=== PATIENT | male | born 1985 | race Caucasian/White ===

== ENCOUNTER 2022-10-31 15:02 | Inpatient (IN) | payer OTHER ==
[~2022-10-31] VITALS: Ht 177.8 cm; Wt 113.4 kg
[2022-10-31] MEDS ORDERED: SODIUM CHLORIDE 0.9% 1,000 ML IV ONE (16:00)
[2022-10-31] MEDS ORDERED: KETOROLAC TROMETHAMINE 30 MG/ML VIAL IVP ONE (16:00)
[2022-10-31] MEDS ORDERED: ONDANSETRON HCL 4 MG/2 ML VIAL IVP ONE (16:00)
[2022-10-31 16:42] LABS: BASOPHILS % (AUTO) 0.6 % (0.0-2.0); EOSINOPHILS % (AUTO) 0.1 % (1.0-6.0); HEMOGLOBIN 17.9 g/dL (13.5-17.5); LYMPHOCYTES # (AUTO) 1.7 K/uL (1.0-4.8); LYMPHOCYTES % (AUTO) 9.3 % (22.0-44.0); MEAN CORPUSCULAR HEMOGLOBIN 29.2 pg (26.0-34.0); MEAN CORPUSCULAR HGB CONC 33.8 G/dL (31.0-37.0); MEAN CORPUSCULAR VOLUME 87 fL (80-100); MONOCYTES # (AUTO) 1.4 K/uL (0.1-1.0); MONOCYTES % (AUTO) 8.2 % (2.0-9.0); NEUTROPHILS # (AUTO) 14.5 K/uL (1.8-7.7); NEUTROPHILS % (AUTO) 81.8 % (40.0-70.0); PLATELET COUNT (AUTO) 319 K/uL (150-450); RED BLOOD CELL COUNT(AUTO) 6.13 MIL/uL (4.50-5.90); RED CELL DISTRIBUTION WIDTH 12.9 % (11.5-14.5)
[2022-10-31 16:45] LABS: ANION GAP 7 mmol/L (8-16); CARBON DIOXIDE 33 mmol/L (22-29); CHLORIDE 97 mmol/L (98-107); CREATININE 0.85 mg/dL (0.60-1.30); GLOMERULAR FILTR. RATE CALC > 60 mL/min (>60); GLUCOSE,RANDOM 125 mg/dL (70-110); POTASSIUM 3.7 mmol/L (3.5-5.1); SODIUM SERUM 137 mmol/L (136-145)
[2022-10-31 16:51] LABS: ALANINE AMINOTRANSFERASE 34 U/L (12-78); ALBUMIN 3.8 g/dL (3.4-5.0); ALKALINE PHOSPHATASE 79 U/L (46-116); ASPARTATE AMINOTRANSFERASE 21 U/L (15-37); BILIRUBIN,TOTAL 0.7 mg/dL (0.1-1.0); TOTAL PROTEIN, SERUM 7.9 g/dL (6.4-8.2)
[2022-10-31 17:40] LABS: AMPHET/METH SCREEN,URINE NEGATIVE (NEGATIVE); BARBITURATE SCREEN, URINE NEGATIVE (NEGATIVE); BENZODIAZEPINES SCREEN,URINE NEGATIVE (NEGATIVE); CANNABINOID SCREEN,URINE NEGATIVE (NEGATIVE); COCAINE SCREEN,URINE NEGATIVE (NEGATIVE); METHADONE SCREEN, URINE NEGATIVE (NEGATIVE); OPIATE SCREEN,URINE NEGATIVE (NEGATIVE); PHENCYCLIDINE SCREEN,URINE NEGATIVE (NEGATIVE)
[2022-10-31] MEDS ORDERED: ACETAMINOPHEN 325 MG TABLET PO PRN ×2 (18:45→19:30)
[2022-10-31] MEDS ORDERED: ONDANSETRON HCL 4 MG/2 ML VIAL IVP PRN (18:45)
[2022-10-31] MEDS ORDERED: TraZODone HCL 50 MG TABLET PO PRN (19:30)
[2022-10-31] MEDS ORDERED: CloNIDine HCL 0.1 MG TABLET PO PRN (19:30)
[2022-10-31] MEDS ORDERED: DICYCLOMINE HCL 10 MG CAPSULE PO PRN (19:30)
[2022-10-31] MEDS ORDERED: IBUPROFEN 600 MG TABLET PO PRN (19:30)
[2022-10-31] MEDS ORDERED: MAG HYDROX/AL HYDROX/SIMETH ES 30 ML SUSPENSION UDCUP PO PRN (19:30)
[2022-10-31] MEDS ORDERED: ZOLPIDEM TARTRATE 5 MG TABLET PO PRN (19:30)
[2022-10-31] MEDS ORDERED: HydrOXYzine PAMOATE 50 MG CAPSULE PO PRN (19:30)
[2022-10-31] MEDS ORDERED: BACLOFEN 10 MG TABLET PO PRN (19:30)
[2022-10-31] MEDS ORDERED: ALBUTEROL SULFATE 2.5 MG/0.5 ML NEB SOLUTION NEB PRN (19:30)
[2022-10-31] MEDS ORDERED: BISACODYL 10 MG RECTAL RECTAL SUPPOSITORY PR PRN (19:30)
[2022-10-31] MEDS ORDERED: PROMETHAZINE HCL 25 MG TABLET PO PRN (19:30)
[2022-10-31] MEDS ORDERED: IPRATROPIUM BROMIDE 0.5 MG/2.5 ML NEB SOLUTION NEB PRN (19:30)
[2022-10-31] MEDS ORDERED: MAGNESIUM HYDROXIDE SUSPENSION 30 ML UDCUP PO PRN (19:30)
[2022-10-31] MEDS ORDERED: LORazepam 1 MG TABLET PO PRN (19:30)
[2022-10-31 21:00] VITALS: BP 146/86; PULSE 72; RESP 20; TEMP 98.3; O2SAT 100
[2022-10-31] MEDS: DOCUSATE SODIUM 100 MG CAPSULE PO SCH (21:00)
[2022-10-31] MEDS: SODIUM CHLORIDE 0.45% 1,000 ML IV SCH (21:25)
[2022-10-31 21:30] VITALS: BP 146/86; PULSE 72; RESP 20; TEMP 98.3
[2022-10-31] MEDS: ONDANSETRON HCL 4 MG/2 ML VIAL IVP PRN (23:43)
[2022-11-01] MEDS: HEPARIN SODIUM,PORCINE 5,000 UNITS/ML VIAL SQ SCH ×4 (00:03→22:44)
[2022-11-01 04:25] VITALS: BP 127/77; PULSE 85; RESP 22; TEMP 99.2
[2022-11-01 08:00] VITALS: BP 108/71; PULSE 75; RESP 20; TEMP 99.3
[2022-11-01] MEDS: PANTOPRAZOLE SODIUM 40 MG/VIAL IVP SCH (09:02)
[2022-11-01] MEDS: DOCUSATE SODIUM 100 MG CAPSULE PO SCH (09:02)
[2022-11-01] MEDS: SODIUM CHLORIDE 0.45% 1,000 ML IV SCH ×2 (09:05→22:42)
[2022-11-01] MEDS: ONDANSETRON HCL 4 MG/2 ML VIAL IVP PRN (09:11)
[2022-11-01 15:00] VITALS: BP 129/68; PULSE 83; RESP 20; TEMP 99.5
[2022-11-01 15:20] VITALS: BP 115/70; PULSE 88; RESP 19; TEMP 98.5
[2022-11-01 19:47] VITALS: BP 141/64; PULSE 79; RESP 20; TEMP 98.4
[2022-11-02 04:50] VITALS: BP 120/63; PULSE 87; RESP 20; TEMP 98.5
[2022-11-02 08:02] VITALS: BP 104/69; PULSE 90; RESP 18; TEMP 99.7
[2022-11-02] MEDS: PANTOPRAZOLE SODIUM 40 MG/VIAL IVP SCH (08:17)
[2022-11-02] MEDS: HEPARIN SODIUM,PORCINE 5,000 UNITS/ML VIAL SQ SCH ×3 (08:19→23:22)
[2022-11-02] MEDS: SODIUM CHLORIDE 0.45% 1,000 ML IV SCH (11:44)
[2022-11-02 13:05] VITALS: BP_SYST 115; BP_DIAS 81; BP_DIAS 91; PULSE 108; RESP 20; TEMP 98.8; O2SAT 98
[2022-11-02] MEDS: CloNIDine HCL 0.1 MG TABLET PO PRN ×2 (13:10→20:32)
[2022-11-02] MEDS ORDERED: LORazepam 2 MG/ML VIAL IVP PRN (14:00)
[2022-11-02] MEDS ORDERED: CloNIDine 0.1 MG/24 HOUR PATCH TD SCH (14:00)
[2022-11-02] MEDS: LORazepam 2 MG/ML VIAL IVP PRN ×2 (15:32→20:32)
[2022-11-02] MEDS: LOPERAMIDE HCL 2 MG/15 ML SUSPENSION UDCUP PO PRN (15:32)
[2022-11-02 15:58] LABS: LYMPHOCYTES # (AUTO) 1.6 K/uL (1.0-4.8); NEUTROPHILS % (AUTO) 76.7 % (40.0-70.0)
[2022-11-02 16:01] LABS: BASOPHILS % (AUTO) 0.3 % (0.0-2.0); EOSINOPHILS % (AUTO) 0 % (1.0-6.0); HEMATOCRIT 50.8 % (41-53); HEMOGLOBIN 16.8 g/dL (13.5-17.5); LYMPHOCYTES % (AUTO) 13.9 % (22.0-44.0); MEAN CORPUSCULAR HEMOGLOBIN 28.7 pg (26.0-34.0); MEAN CORPUSCULAR HGB CONC 33.1 G/dL (31.0-37.0); MEAN CORPUSCULAR VOLUME 87 fL (80-100); MONOCYTES % (AUTO) 9.1 % (2.0-9.0); NEUTROPHILS # (AUTO) 8.6 K/uL (1.8-7.7); PLATELET COUNT (AUTO) 280 K/uL (150-450); RED BLOOD CELL COUNT(AUTO) 5.86 MIL/uL (4.50-5.90); RED CELL DISTRIBUTION WIDTH 12.8 % (11.5-14.5)
[2022-11-02 16:02] LABS: ANION GAP 6 mmol/L (8-16); CALCIUM, TOTAL 9.4 mg/dL (8.8-10.5); CARBON DIOXIDE 27 mmol/L (22-29); CHLORIDE 102 mmol/L (98-107); GLOMERULAR FILTR. RATE CALC > 60 mL/min (>60); GLUCOSE,RANDOM 112 mg/dL (70-110); POTASSIUM 3.7 mmol/L (3.5-5.1); SODIUM SERUM 135 mmol/L (136-145)
[2022-11-02 16:27] LABS: ALANINE AMINOTRANSFERASE 29 U/L (12-78); ALBUMIN 3.5 g/dL (3.4-5.0); ALKALINE PHOSPHATASE 71 U/L (46-116); ASPARTATE AMINOTRANSFERASE 22 U/L (15-37); BILIRUBIN,TOTAL 0.6 mg/dL (0.1-1.0); CREATINE KINASE, TOTAL ONLY 157 U/L (39-308); TOTAL PROTEIN, SERUM 7.5 g/dL (6.4-8.2)
[2022-11-02 20:21] VITALS: BP 130/84; PULSE 93; RESP 20; TEMP 99.2
[2022-11-02] MEDS: ACETAMINOPHEN 325 MG TABLET PO PRN (20:32)
[2022-11-03] MEDS: SODIUM CHLORIDE 0.45% 1,000 ML IV SCH ×2 (00:09→15:27)
[2022-11-03 00:36] VITALS: BP 128/94; PULSE 83; RESP 18; TEMP 97.6
[2022-11-03] MEDS: LORazepam 2 MG/ML VIAL IVP PRN (00:41)
[2022-11-03 07:39] VITALS: BP 121/67; PULSE 77; RESP 20; TEMP 98.2
[2022-11-03] MEDS: HEPARIN SODIUM,PORCINE 5,000 UNITS/ML VIAL SQ SCH ×3 (08:43→23:10)
[2022-11-03] MEDS: PANTOPRAZOLE SODIUM 40 MG/VIAL IVP SCH (08:43)
[2022-11-03 12:59] VITALS: BP 124/74; PULSE 82; RESP 20; TEMP 97.8
[2022-11-03 14:58] VITALS: BP 128/76; PULSE 87; RESP 20; TEMP 98.4
[2022-11-03] MEDS: LOPERAMIDE HCL 2 MG/15 ML SUSPENSION UDCUP PO PRN (16:57)
[2022-11-03 20:44] VITALS: BP 123/75; PULSE 65; RESP 20; TEMP 98.6
[2022-11-04] MEDS: SODIUM CHLORIDE 0.45% 1,000 ML IV SCH ×2 (03:42→15:10)
[2022-11-04 05:33] VITALS: BP 121/63; PULSE 67; RESP 20; TEMP 97
[2022-11-04 07:24] VITALS: BP 126/68; PULSE 72; RESP 20; TEMP 97.8
[2022-11-04] MEDS: HEPARIN SODIUM,PORCINE 5,000 UNITS/ML VIAL SQ SCH ×3 (08:37→22:58)
[2022-11-04] MEDS: PANTOPRAZOLE SODIUM 40 MG/VIAL IVP SCH (08:37)
[2022-11-04 10:43] LABS: BASOPHILS % (AUTO) 0.3 % (0.0-2.0); EOSINOPHILS % (AUTO) 0.2 % (1.0-6.0); HEMATOCRIT 51.9 % (41-53); HEMOGLOBIN 17.5 g/dL (13.5-17.5); LYMPHOCYTES # (AUTO) 2.6 K/uL (1.0-4.8); MEAN CORPUSCULAR HEMOGLOBIN 29.3 pg (26.0-34.0); MEAN CORPUSCULAR HGB CONC 33.8 G/dL (31.0-37.0); MEAN CORPUSCULAR VOLUME 87 fL (80-100); MONOCYTES # (AUTO) 0.9 K/uL (0.1-1.0); NEUTROPHILS # (AUTO) 8.2 K/uL (1.8-7.7); NEUTROPHILS % (AUTO) 69.5 % (40.0-70.0); PLATELET COUNT (AUTO) 252 K/uL (150-450); RED BLOOD CELL COUNT(AUTO) 5.99 MIL/uL (4.50-5.90); RED CELL DISTRIBUTION WIDTH 12.6 % (11.5-14.5)
[2022-11-04 10:49] LABS: ABG A-A DIFF O2 38.9 mmHg (10-20.0); ABG CARBOXYHEMOGLOBIN 1.3 % (0.0-1.5); ABG METHEMOGLOBIN 0.3 % (0.0-1.5); ABG OXYGEN CONTENT 23.8 mL/dL (15.0-23.0); ABG OXYGEN SATURATION 95.8 % (95.0-98.0); ABG OXYHEMOGLOBIN 94.3 % (94.0-100.0); ABG PCO2 30 mmHg (35-45); ABG PH 7.475 (7.350-7.450); O2 DEVICE,BLOOD GAS ROOM AIR (ROOM AIR); PO2, ARTERIAL BG 74.9 mmHg (92.0-100.0); SITE, BLOOD GAS RT RADIAL; SOURCE, BLOOD GAS ARTERIAL; TEMPERATURE, FAHRENHEIT, BG 98.6 FAHREN (96.0-98.6)
[2022-11-04 10:53] LABS: ANION GAP 14 mmol/L (8-16); CALCIUM, TOTAL 9.1 mg/dL (8.8-10.5); CARBON DIOXIDE 24 mmol/L (22-29); CHLORIDE 100 mmol/L (98-107); GLOMERULAR FILTR. RATE CALC > 60 mL/min (>60); GLUCOSE,RANDOM 91 mg/dL (70-110); POTASSIUM 3.8 mmol/L (3.5-5.1); SODIUM SERUM 138 mmol/L (136-145)
[2022-11-04 11:01] LABS: ALANINE AMINOTRANSFERASE 61 U/L (12-78); ALBUMIN 3.4 g/dL (3.4-5.0); ALKALINE PHOSPHATASE 69 U/L (46-116); ASPARTATE AMINOTRANSFERASE 40 U/L (15-37); BILIRUBIN,TOTAL 0.7 mg/dL (0.1-1.0); TOTAL PROTEIN, SERUM 7.3 g/dL (6.4-8.2)
[2022-11-04 15:02] VITALS: BP 124/62; PULSE 76; RESP 20; TEMP 98.2
[2022-11-04 19:40] VITALS: BP 127/76; PULSE 81; RESP 20; TEMP 99.2
[2022-11-04] MEDS: LOPERAMIDE HCL 2 MG/15 ML SUSPENSION UDCUP PO PRN (22:57)
[2022-11-04] MEDS: ACETAMINOPHEN 325 MG TABLET PO PRN (22:58)
[2022-11-04 23:43] VITALS: BP 126/90; PULSE 77; RESP 20; TEMP 99.1
[2022-11-05 04:30] VITALS: BP 118/67; PULSE 73; RESP 20; TEMP 98.8
[2022-11-05] MEDS: SODIUM CHLORIDE 0.45% 1,000 ML IV SCH ×2 (05:04→19:38)
[2022-11-05 07:48] VITALS: BP 124/68; PULSE 84; RESP 20; TEMP 98.7
[2022-11-05] MEDS: ONDANSETRON HCL 4 MG/2 ML VIAL IVP PRN ×2 (08:21→16:44)
[2022-11-05] MEDS: PANTOPRAZOLE SODIUM 40 MG/VIAL IVP SCH (08:21)
[2022-11-05] MEDS: HEPARIN SODIUM,PORCINE 5,000 UNITS/ML VIAL SQ SCH ×3 (08:50→23:31)
[2022-11-05] MEDS: LOPERAMIDE HCL 2 MG/15 ML SUSPENSION UDCUP PO PRN (08:52)
[2022-11-05 11:18] LABS: BASOPHILS % (AUTO) 0.6 % (0.0-2.0); EOSINOPHILS % (AUTO) 0.4 % (1.0-6.0); HEMOGLOBIN 17.6 g/dL (13.5-17.5); LYMPHOCYTES # (AUTO) 3.1 K/uL (1.0-4.8); LYMPHOCYTES % (AUTO) 20.9 % (22.0-44.0); MEAN CORPUSCULAR HEMOGLOBIN 29.4 pg (26.0-34.0); MEAN CORPUSCULAR HGB CONC 33.9 G/dL (31.0-37.0); MEAN CORPUSCULAR VOLUME 87 fL (80-100); MONOCYTES # (AUTO) 1.5 K/uL (0.1-1.0); MONOCYTES % (AUTO) 10.4 % (2.0-9.0); NEUTROPHILS # (AUTO) 9.9 K/uL (1.8-7.7); NEUTROPHILS % (AUTO) 67.7 % (40.0-70.0); PLATELET COUNT (AUTO) 257 K/uL (150-450); RED BLOOD CELL COUNT(AUTO) 5.99 MIL/uL (4.50-5.90); RED CELL DISTRIBUTION WIDTH 12.8 % (11.5-14.5)
[2022-11-05 11:33] LABS: ANION GAP 12 mmol/L (8-16); CALCIUM, TOTAL 9.1 mg/dL (8.8-10.5); CARBON DIOXIDE 25 mmol/L (22-29); CHLORIDE 102 mmol/L (98-107); CREATININE 0.68 mg/dL (0.60-1.30); GLOMERULAR FILTR. RATE CALC > 60 mL/min (>60); GLUCOSE,RANDOM 132 mg/dL (70-110); POTASSIUM 3.7 mmol/L (3.5-5.1); SODIUM SERUM 139 mmol/L (136-145)
[2022-11-05 11:40] LABS: ALANINE AMINOTRANSFERASE 130 U/L (12-78); ALBUMIN 3.3 g/dL (3.4-5.0); ALKALINE PHOSPHATASE 74 U/L (46-116); ASPARTATE AMINOTRANSFERASE 66 U/L (15-37); BILIRUBIN,TOTAL 0.5 mg/dL (0.1-1.0); TOTAL PROTEIN, SERUM 7.3 g/dL (6.4-8.2)
[2022-11-05 15:24] VITALS: BP 126/70; PULSE 86; RESP 20; TEMP 98.4
[2022-11-05 18:26] LABS: CREATINE KINASE, TOTAL ONLY 171 U/L (39-308)
[2022-11-05 20:51] VITALS: BP 97/75; PULSE 77; RESP 18; TEMP 98.7
[2022-11-06 04:53] VITALS: BP 110/60; PULSE 86; RESP 18; TEMP 99
[2022-11-06 07:30] VITALS: BP 128/86; PULSE 88; RESP 21; TEMP 98.1
[2022-11-06] MEDS: SODIUM CHLORIDE 0.45% 1,000 ML IV SCH ×2 (08:55→21:53)
[2022-11-06] MEDS: PANTOPRAZOLE SODIUM 40 MG/VIAL IVP SCH (08:56)
[2022-11-06] MEDS: HEPARIN SODIUM,PORCINE 5,000 UNITS/ML VIAL SQ SCH ×2 (08:56→17:22)
[2022-11-06 19:58] VITALS: BP 132/65; PULSE 70; RESP 20; TEMP 98.7
[2022-11-07] MEDS: HEPARIN SODIUM,PORCINE 5,000 UNITS/ML VIAL SQ SCH ×4 (00:42→23:33)
[2022-11-07 04:20] VITALS: BP 111/65; PULSE 75; RESP 20; TEMP 98.8
[2022-11-07 08:15] VITALS: BP 102/46; PULSE 79; RESP 20; TEMP 98.3
[2022-11-07] MEDS: PANTOPRAZOLE SODIUM 40 MG/VIAL IVP SCH (09:01)
[2022-11-07 14:52] LABS: BASOPHILS % (AUTO) 0.7 % (0.0-2.0); EOSINOPHILS % (AUTO) 0.5 % (1.0-6.0); HEMATOCRIT 50.2 % (41-53); HEMOGLOBIN 17.3 g/dL (13.5-17.5); LYMPHOCYTES # (AUTO) 3.1 K/uL (1.0-4.8); LYMPHOCYTES % (AUTO) 24.2 % (22.0-44.0); MEAN CORPUSCULAR HEMOGLOBIN 29.3 pg (26.0-34.0); MEAN CORPUSCULAR HGB CONC 34.4 G/dL (31.0-37.0); MEAN CORPUSCULAR VOLUME 85 fL (80-100); MONOCYTES # (AUTO) 0.9 K/uL (0.1-1.0); MONOCYTES % (AUTO) 7.4 % (2.0-9.0); NEUTROPHILS # (AUTO) 8.6 K/uL (1.8-7.7); NEUTROPHILS % (AUTO) 67.2 % (40.0-70.0); PLATELET COUNT (AUTO) 264 K/uL (150-450); RED BLOOD CELL COUNT(AUTO) 5.89 MIL/uL (4.50-5.90)
[2022-11-07 15:00] LABS: ANION GAP 9 mmol/L (8-16); CALCIUM, TOTAL 9.2 mg/dL (8.8-10.5); CARBON DIOXIDE 26 mmol/L (22-29); CHLORIDE 105 mmol/L (98-107); CREATININE 0.63 mg/dL (0.60-1.30); GLOMERULAR FILTR. RATE CALC > 60 mL/min (>60); GLUCOSE,RANDOM 116 mg/dL (70-110); POTASSIUM 3.6 mmol/L (3.5-5.1); SODIUM SERUM 140 mmol/L (136-145)
[2022-11-07 15:06] LABS: ALANINE AMINOTRANSFERASE 315 U/L (12-78); ALBUMIN 3.3 g/dL (3.4-5.0); ALKALINE PHOSPHATASE 67 U/L (46-116); ASPARTATE AMINOTRANSFERASE 98 U/L (15-37); BILIRUBIN,TOTAL 0.4 mg/dL (0.1-1.0); TOTAL PROTEIN, SERUM 7.1 g/dL (6.4-8.2)
[2022-11-07 16:08] VITALS: BP 109/66; PULSE 77; RESP 19; TEMP 98.5
[2022-11-07] MEDS: SODIUM CHLORIDE 0.45% 1,000 ML IV SCH (17:46)
[2022-11-07 20:04] VITALS: BP 117/74; PULSE 80; RESP 20; TEMP 97.8
[2022-11-08 04:48] VITALS: BP 132/75; PULSE 71; RESP 20; TEMP 97.7
[2022-11-08] MEDS: SODIUM CHLORIDE 0.45% 1,000 ML IV SCH (07:34)
[2022-11-08 07:46] VITALS: BP 96/53; PULSE 80; RESP 20; TEMP 98.7
[2022-11-08] MEDS: PANTOPRAZOLE SODIUM 40 MG/VIAL IVP SCH (08:41)
[2022-11-08] MEDS: HEPARIN SODIUM,PORCINE 5,000 UNITS/ML VIAL SQ SCH (08:42)
[2022-11-08 15:27] VITALS: BP 115/65; PULSE 68; RESP 20; TEMP 98.8
== END 2022-11-08 16:10 | DRG 897 ==
LOC: EMS 15:10 → 6S 20:10
PROVIDERS: ADMIT Hospitalist; ATTEND Hospitalist
DX: F11.13 Opioid abuse with withdrawal (principal); F17.210 Nicotine dependence, cigarettes, uncomplicated; D72.829 Elevated white blood cell count, unspecified; F41.9 Anxiety disorder, unspecified; F32.A Depression, unspecified
CPT/HCPCS: 36600; 80053; 80307; 82550; 82805; 85025; 97116; 97163; 97166; 97530; 97535; 99285; C9113; J1644; J1885; J2060; J2405; J7030

== ENCOUNTER 2022-12-18 22:00 | Inpatient (IN) | payer OTHER ==
[~2022-12-18] VITALS: Ht 177.8 cm; Wt 104.5 kg
[2022-12-19 00:01] LABS: BASOPHILS % (AUTO) 0.4 % (0.0-2.0); EOSINOPHILS % (AUTO) 0.4 % (1.0-6.0); HEMATOCRIT 43.8 % (41-53); HEMOGLOBIN 14.5 g/dL (13.5-17.5); LYMPHOCYTES # (AUTO) 1.8 K/uL (1.0-4.8); LYMPHOCYTES % (AUTO) 10.7 % (22.0-44.0); MEAN CORPUSCULAR HEMOGLOBIN 29.2 pg (26.0-34.0); MEAN CORPUSCULAR HGB CONC 33.1 G/dL (31.0-37.0); MEAN CORPUSCULAR VOLUME 88 fL (80-100); MONOCYTES # (AUTO) 0.9 K/uL (0.1-1.0); MONOCYTES % (AUTO) 5.7 % (2.0-9.0); NEUTROPHILS # (AUTO) 13.7 K/uL (1.8-7.7); NEUTROPHILS % (AUTO) 82.8 % (40.0-70.0); PLATELET COUNT (AUTO) 233 K/uL (150-450); RED BLOOD CELL COUNT(AUTO) 4.97 MIL/uL (4.50-5.90); RED CELL DISTRIBUTION WIDTH 14.1 % (11.5-14.5)
[2022-12-19 00:10] LABS: ANION GAP 14 mmol/L (8-16); CALCIUM, TOTAL 8.8 mg/dL (8.8-10.5); CARBON DIOXIDE 25 mmol/L (22-29); CHLORIDE 105 mmol/L (98-107); CREATININE 0.63 mg/dL (0.60-1.30); GLOMERULAR FILTR. RATE CALC > 60 mL/min (>60); GLUCOSE,RANDOM 118 mg/dL (70-110); POTASSIUM 3.7 mmol/L (3.5-5.1); SODIUM SERUM 144 mmol/L (136-145)
[2022-12-19 00:16] LABS: ALANINE AMINOTRANSFERASE 52 U/L (12-78); ALBUMIN 3.1 g/dL (3.4-5.0); ALKALINE PHOSPHATASE 60 U/L (46-116); ASPARTATE AMINOTRANSFERASE 27 U/L (15-37); BILIRUBIN,TOTAL 0.5 mg/dL (0.1-1.0); TOTAL PROTEIN, SERUM 6.3 g/dL (6.4-8.2)
[2022-12-19] MEDS ORDERED: AMPICILLIN SODIUM/SULBACTAM NA 1.5 GM in SODIUM CHLORIDE 0.9% 50 ML IV ONE (01:00)
[2022-12-19] MEDS ORDERED: SODIUM CHLORIDE 0.9% 1,000 ML ONE (01:06)
[2022-12-19 03:38] VITALS: BP 100/48; PULSE 75; RESP 18; TEMP 98.9
[2022-12-19 08:00] VITALS: BP 92/56; PULSE 78; RESP 20; TEMP 97.9
[2022-12-19] MEDS ORDERED: ACETAMINOPHEN 325 MG TABLET PO PRN (10:30)
[2022-12-19] MEDS ORDERED: BISACODYL 10 MG RECTAL RECTAL SUPPOSITORY PR PRN (10:30)
[2022-12-19] MEDS ORDERED: ZOLPIDEM TARTRATE 5 MG TABLET PO PRN (10:30)
[2022-12-19] MEDS ORDERED: MORPHINE SULFATE 2 MG/ML SYRINGE IVP PRN (10:30)
[2022-12-19] MEDS ORDERED: MAGNESIUM SULFATE 2 GM, MVI, ADULT NO.1 WITH VIT K 10 ML, THIAMINE 100 MG, FOLIC ACID 1... IV ONE ×5 (10:30)
[2022-12-19] MEDS ORDERED: HYDROCODONE/ACETAMINOPHEN 5-325 MG TABLET PO PRN (10:30)
[2022-12-19] MEDS ORDERED: ONDANSETRON HCL 4 MG/2 ML VIAL IVP PRN (10:30)
[2022-12-19 15:39] LABS: APPEARANCE,URINE CLEAR (CLEAR); BILIRUBIN,URINE NEGATIVE (NEGATIVE); GLUCOSE, URINE (UA) NEGATIVE (NEGATIVE); KETONES,URINE NEGATIVE (NEGATIVE); LEUKOCYTE ESTERASE ,URINE NEGATIVE (NEGATIVE); NITRATE,URINE NEGATIVE (NEGATIVE); OCCULT BLOOD,URINE NEGATIVE (NEGATIVE); PH,URINE 5.5 (5.0-8.0); PROTEIN,URINE NEGATIVE (NEGATIVE); UROBILINOGEN,URINE <=1.0 mg/dL (<=1.0)
[2022-12-19 15:48] LABS: AMPHET/METH SCREEN,URINE NEGATIVE (NEGATIVE); BARBITURATE SCREEN, URINE NEGATIVE (NEGATIVE); BENZODIAZEPINES SCREEN,URINE NEGATIVE (NEGATIVE); CANNABINOID SCREEN,URINE NEGATIVE (NEGATIVE); COCAINE SCREEN,URINE NEGATIVE (NEGATIVE); METHADONE SCREEN, URINE NEGATIVE (NEGATIVE); OPIATE SCREEN,URINE NEGATIVE (NEGATIVE); PHENCYCLIDINE SCREEN,URINE NEGATIVE (NEGATIVE)
[2022-12-19 15:52] LABS: BACTERIA,URINE None Seen /HPF (None Seen); RBC,URINE 0-2 /HPF (0-2); WBC,URINE 0-2 /HPF (0-5)
[2022-12-19] MEDS: HEPARIN SODIUM,PORCINE 5,000 UNITS/ML VIAL SQ SCH ×2 (15:52→23:15)
[2022-12-19 19:59] VITALS: BP 105/53; PULSE 79; RESP 18; TEMP 98.8
[2022-12-19] MEDS: AMOX TR/POT CLAV 500 MG/125 MG TABLET PO SCH (20:38)
[2022-12-19] MEDS: DOCUSATE SODIUM 100 MG CAPSULE PO SCH (20:38)
[2022-12-19] MEDS: MAGNESIUM HYDROXIDE SUSPENSION 30 ML UDCUP PO PRN (20:45)
[2022-12-20 05:29] VITALS: BP 107/53; PULSE 70; RESP 18; TEMP 98.5
[2022-12-20 07:42] LABS: BASOPHILS % (AUTO) 1.2 % (0.0-2.0); EOSINOPHILS % (AUTO) 3.1 % (1.0-6.0); HEMATOCRIT 42.7 % (41-53); HEMOGLOBIN 14.3 g/dL (13.5-17.5); LYMPHOCYTES # (AUTO) 3.6 K/uL (1.0-4.8); LYMPHOCYTES % (AUTO) 42.5 % (22.0-44.0); MEAN CORPUSCULAR HEMOGLOBIN 29.8 pg (26.0-34.0); MEAN CORPUSCULAR HGB CONC 33.6 G/dL (31.0-37.0); MEAN CORPUSCULAR VOLUME 89 fL (80-100); MONOCYTES # (AUTO) 0.6 K/uL (0.1-1.0); MONOCYTES % (AUTO) 6.7 % (2.0-9.0); NEUTROPHILS % (AUTO) 46.5 % (40.0-70.0); PLATELET COUNT (AUTO) 196 K/uL (150-450); RED BLOOD CELL COUNT(AUTO) 4.81 MIL/uL (4.50-5.90); RED CELL DISTRIBUTION WIDTH 14.3 % (11.5-14.5)
[2022-12-20 07:56] LABS: ANION GAP 3 mmol/L (8-16); CALCIUM, TOTAL 8.6 mg/dL (8.8-10.5); CARBON DIOXIDE 30 mmol/L (22-29); CHLORIDE 107 mmol/L (98-107); GLOMERULAR FILTR. RATE CALC > 60 mL/min (>60); GLUCOSE,RANDOM 93 mg/dL (70-110); POTASSIUM 4.4 mmol/L (3.5-5.1); SODIUM SERUM 140 mmol/L (136-145)
[2022-12-20 08:04] VITALS: BP 99/54; PULSE 67; RESP 18; TEMP 98.7
[2022-12-20] MEDS: HEPARIN SODIUM,PORCINE 5,000 UNITS/ML VIAL SQ SCH ×3 (09:01→23:32)
[2022-12-20] MEDS: AMOX TR/POT CLAV 500 MG/125 MG TABLET PO SCH ×2 (09:01→21:24)
[2022-12-20] MEDS: DOCUSATE SODIUM 100 MG CAPSULE PO SCH ×2 (09:01→21:25)
[2022-12-20] MEDS: PANTOPRAZOLE SODIUM 40 MG DR TABLET PO SCH (09:01)
[2022-12-20] MEDS ORDERED: SODIUM CHLORIDE 0.9% 1,000 ML IV ONE (10:30)
[2022-12-20 20:20] VITALS: BP 105/60; PULSE 72; RESP 20; TEMP 98.5
[2022-12-20] MEDS: MAGNESIUM HYDROXIDE SUSPENSION 30 ML UDCUP PO PRN (21:25)
[2022-12-21 04:45] VITALS: BP 93/56; PULSE 66; RESP 20; TEMP 98
[2022-12-21 07:24] LABS: BASOPHILS % (AUTO) 0.9 % (0.0-2.0); EOSINOPHILS % (AUTO) 2.9 % (1.0-6.0); HEMATOCRIT 44.8 % (41-53); HEMOGLOBIN 14.4 g/dL (13.5-17.5); LYMPHOCYTES # (AUTO) 3.7 K/uL (1.0-4.8); LYMPHOCYTES % (AUTO) 37.5 % (22.0-44.0); MEAN CORPUSCULAR HEMOGLOBIN 28.7 pg (26.0-34.0); MEAN CORPUSCULAR HGB CONC 32.2 G/dL (31.0-37.0); MEAN CORPUSCULAR VOLUME 89 fL (80-100); MONOCYTES # (AUTO) 0.6 K/uL (0.1-1.0); MONOCYTES % (AUTO) 5.8 % (2.0-9.0); NEUTROPHILS # (AUTO) 5.2 K/uL (1.8-7.7); NEUTROPHILS % (AUTO) 52.9 % (40.0-70.0); PLATELET COUNT (AUTO) 211 K/uL (150-450); RED BLOOD CELL COUNT(AUTO) 5.02 MIL/uL (4.50-5.90); RED CELL DISTRIBUTION WIDTH 14.1 % (11.5-14.5)
[2022-12-21 07:32] LABS: ANION GAP 7 mmol/L (8-16); CALCIUM, TOTAL 8.3 mg/dL (8.8-10.5); CARBON DIOXIDE 27 mmol/L (22-29); CHLORIDE 107 mmol/L (98-107); CREATININE 0.63 mg/dL (0.60-1.30); GLOMERULAR FILTR. RATE CALC > 60 mL/min (>60); GLUCOSE,RANDOM 87 mg/dL (70-110); SODIUM SERUM 140 mmol/L (136-145)
[2022-12-21] MEDS: HEPARIN SODIUM,PORCINE 5,000 UNITS/ML VIAL SQ SCH (07:38)
[2022-12-21] MEDS: PANTOPRAZOLE SODIUM 40 MG DR TABLET PO SCH (07:38)
[2022-12-21] MEDS: AMOX TR/POT CLAV 500 MG/125 MG TABLET PO SCH (07:38)
[2022-12-21] MEDS: DOCUSATE SODIUM 100 MG CAPSULE PO SCH (07:38)
[2022-12-21 09:41] VITALS: BP 116/72; PULSE 72; RESP 19; TEMP 98.5
[2022-12-21] MEDS ORDERED: AMOX1TAB15 PO (11:37)
[2022-12-21] MEDS ORDERED: ACET-2247 PO (11:38)
== END 2022-12-21 14:35 | DRG 917 ==
LOC: EMS 22:05 → 6S 12-19 01:30
PROVIDERS: ADMIT Internal Medicine; ATTEND Internal Medicine
DX: T40.601A Poisoning by unspecified narcotics, accidental (unintentional), initial encounter (principal); J69.0 Pneumonitis due to inhalation of food and vomit; R65.10 Systemic inflammatory response syndrome (SIRS) of non-infectious origin without acute organ dysfunction; F11.10 Opioid abuse, uncomplicated; F32.A Depression, unspecified; F41.9 Anxiety disorder, unspecified; R07.89 Other chest pain; I95.9 Hypotension, unspecified; F17.210 Nicotine dependence, cigarettes, uncomplicated; Y92.89 Other specified places as the place of occurrence of the external cause
CPT/HCPCS: 71045; 80048; 80053; 80307; 81001; 85025; 87040; 99283; 99285; J0295; J1644; J3411; J3475; J3490; J7030; J7050; 36415-L1; 36415-TC